=== PATIENT | male | born 1980 | race Caucasian/White ===

== ENCOUNTER 2020-07-03 09:09 | Emergency (ER) | payer OTHER ==
[~2020-07-03] VITALS: Ht 175.3 cm; Wt 86.2 kg
[~2020-07-03 09:09] MED LIST: Norco 5-325 Ta1 EACH PO; PENVK500 PO
[2020-07-03] MEDS ORDERED: ERYT1OIN LEFTEYE (10:15)
[2020-07-03] MEDS ORDERED: ATOR80 PO (10:26)
== END 2020-07-03 10:30 | disposition home or self-care (01) ==
LOC: ER 09:09
DX: T15.92XA Foreign body on external eye, part unspecified, left eye, initial encounter (principal); Z87.891 Personal history of nicotine dependence
CPT/HCPCS: 99283; A9270